=== PATIENT | female | born 1935 | race American Indian/Alaskan Native ===

== ENCOUNTER → 2016-10-03 16:58 | Outpatient (CLI) | payer MEDICARE, OTHER ==
[2014-11-22 09:57] VITALS: BMI 31.6
[~2016-10-03 16:58] MED LIST: CALCIUM 600+D T1 TA1 PO; COZAAR50 MG; COZAAR50 MG PO; DESERYL100 MG PO; DESYREL50 MG PO; ELIQUIS2.5 MG PO; FISH OIL 1,0001 CA1 PO; GLIPIZIDE10 MG; GLIPIZIDE10 MG PO; HYDROCHLOROTHIA25 MG; HYDROCHLOROTHIA25 MG PO; HYDROCODONE-APA1 TAB PO; MILK OF MAGNESI30 ML PO; MULTIPLE VITAMI1 TA1; MULTIPLE VITAMI1 TA1 PO; NORCO 10/325 TA1 TA1; PARAFON FORTE500 MG PO; PERCOCET 10/3251 TA1 PO; PLAVIX75 MG PO; PRAVACHOL80 MG PO; PROAIR HFA8.5 GM INH; VESICARE10 MG PO; XANAX0.5 MG PO
== END | disposition home or self-care (01) ==
LOC: D.MAMMO 11:00
DX: Z12.31 Encounter for screening mammogram for malignant neoplasm of breast (principal)

== ENCOUNTER 2018-05-06 06:38 | Emergency (ER) | payer MEDICARE ==
[~2018-05-06] VITALS: Ht 162.6 cm; Wt 79.1 kg
[2018-05-06 06:40] VITALS: Ht 162.6 cm; Wt 79.1 kg
[2018-05-06 08:41] VITALS: BP 150/61
== END 2018-05-06 08:43 | disposition home or self-care (01) ==
LOC: D.ER 06:38
DX: G89.29 Other chronic pain (principal); M54.5 Low back pain; M19.90 Unspecified osteoarthritis, unspecified site; M25.511 Pain in right shoulder; M79.604 Pain in right leg; E11.9 Type 2 diabetes mellitus without complications; I10 Essential (primary) hypertension; Z95.0 Presence of cardiac pacemaker; I25.10 Atherosclerotic heart disease of native coronary artery without angina pectoris

== ENCOUNTER → 2019-08-03 09:52 | Outpatient (CLI) | payer MEDICARE, OTHER ==
[2018-05-06 06:40] VITALS: BMI 29.9
== END | disposition home or self-care (01) ==
LOC: D.HCCECHO 09:52 → D.HCCARDIO 10:30 → D.HCCECHO 10:30
PROVIDERS: ATTEND Internal Medicine Cardiovascular Disease
DX: I25.10 Atherosclerotic heart disease of native coronary artery without angina pectoris (principal)

== ENCOUNTER 2021-02-17 15:45 | Outpatient (CLI) | payer MEDICARE, OTHER ==
[2018-05-06 06:40] VITALS: BMI 29.9
== END 2021-02-17 23:59 | disposition home or self-care (01) ==
LOC: D.MAMMO 15:45
PROVIDERS: ATTEND Family Medicine
DX: Z12.31 Encounter for screening mammogram for malignant neoplasm of breast (principal)